=== PATIENT | female | born 1950 | race Two or more races ===

== ENCOUNTER 2018-07-28 07:53 | Emergency (ER) | payer OTHER ==
[~2018-07-28] VITALS: Ht 167.6 cm; Wt 69.9 kg
[2018-07-28] MEDS ORDERED: VERAPAMIL ER240 MG (08:04)
[2018-07-28] MEDS ORDERED: CEFADROXIL500 MG PO (10:04)
== END 2018-07-28 10:12 | disposition home or self-care (01) ==
LOC: ER 07:53
DX: R30.0 Dysuria (principal)

== ENCOUNTER 2018-08-17 07:43 | Emergency (ER) | payer OTHER ==
[~2018-08-17] VITALS: Ht 157.5 cm; Wt 0.5 kg
[~2018-08-17 07:43] MED LIST: CEFADROXIL500 MG PO; VERAPAMIL ER240 MG
[2018-08-18] MEDS ORDERED: EFFER-K 10 MEQ10 MEQ PO (05:23)
[2018-08-18] MEDS ORDERED: IRON1TAB4 PO (05:23)
== END 2018-08-18 07:22 | disposition home or self-care (01) ==
LOC: ER 07:43
DX: N93.8 Other specified abnormal uterine and vaginal bleeding (principal); D28.2 Benign neoplasm of uterine tubes and ligaments; E87.6 Hypokalemia